=== PATIENT | female | born 1955 | race Caucasian/White ===

== ENCOUNTER → 2016-10-22 | Outpatient (CLI) | payer OTHER ==
--- NOTE | 2016-10-22 11:25 | MM ---
Reason for exam: additional evaluation requested from prior study. Last mammogram was performed 1 year and 3 months ago. History: Patient is postmenopausal. Family history of breast cancer in grandmother. Physical Findings: Nurse did not find any significant physical abnormalities on exam. MG 3D Diag Mammo W/Cad TRACY Bilateral CC and MLO view(s) were taken. Prior study comparison: July 23, 2015, bilateral MG 3d screening mammo w/cad. May 25, 2014, left breast MG work up mamm w CAD LT. Asymmetry in left upper outer quadrant. This finding is changed when compared with previous exams. These results were verbally communicated with the patient and result sheet given to the patient on 10/22/16. ASSESSMENT: Incomplete: need additional imaging evaluation, BI-RAD 0 RECOMMENDATION: Ultrasound of the left breast.
--- NOTE | 2016-10-22 11:28 | USB ---
Reason for exam: additional evaluation requested from abnormal screening. History: Patient is postmenopausal. Family history of breast cancer in grandmother. US Breast Limited LT Left breast ultrasound demonstrates a 4 x 2 x 4mm oval, cystic lesion at 12 o'clock, a 17 x 7 x 15mm lobular, cystic lesion at 1 o'clock, a 6 x 2 x 7mm oval, cystic lesion at 3 o'clock and duct ectasia at the posterior nipple. These results were verbally communicated with the patient and result sheet given to the patient on 10/22/16. ASSESSMENT: Benign, BI-RAD 2 RECOMMENDATION: Routine screening mammogram of both breasts in 1 year.
== END | disposition home or self-care (01) ==
LOC: RADMAMWWP 09:36
PROVIDERS: ATTEND Obstetrics & Gynecology
DX: R92.8 Other abnormal and inconclusive findings on diagnostic imaging of breast (principal)
CPT/HCPCS: 76642; G0204; G0279

== ENCOUNTER → 2017-12-07 | Outpatient (CLI) | payer OTHER ==
--- NOTE | 2017-12-09 09:40 | MM ---
Reason for exam: screening (asymptomatic). Last mammogram was performed 1 year and 2 months ago. History: Patient is postmenopausal. Family history of breast cancer in grandmother. Physical Findings: A clinical breast exam by your physician is recommended on an annual basis and results should be correlated with mammographic findings. MG 3D Screening Mammo W/Cad Bilateral CC and MLO view(s) were taken. Prior study comparison: October 22, 2016, bilateral MG 3d diag mammo w/cad TRACY. July 23, 2015, bilateral MG 3d screening mammo w/cad. There are scattered fibroglandular densities. There is chronic nodularity in the left breast. No significant changes when compared with prior studies. ASSESSMENT: Benign, BI-RAD 2 RECOMMENDATION: Routine screening mammogram of both breasts in 1 year.
== END | disposition home or self-care (01) ==
LOC: RADMAMWWP 13:29
PROVIDERS: ATTEND Obstetrics & Gynecology
DX: Z12.31 Encounter for screening mammogram for malignant neoplasm of breast (principal)
CPT/HCPCS: 77063; 77067

== ENCOUNTER → 2019-02-17 | Outpatient (CLI) | payer BC ==
--- NOTE | 2019-02-18 10:54 | MM ---
Reason for exam: screening (asymptomatic). Last mammogram was performed 1 year and 2 months ago. History: Patient is postmenopausal. Family history of breast cancer in grandmother. Physical Findings: A clinical breast exam by your physician is recommended on an annual basis and results should be correlated with mammographic findings. MG 3D Screening Mammo W/Cad Bilateral CC and MLO view(s) were taken. Prior study comparison: December 07, 2017, bilateral MG 3d screening mammo w/cad. October 22, 2016, bilateral MG 3d diag mammo w/cad TRACY. There are scattered fibroglandular densities. No significant changes when compared with prior studies. ASSESSMENT: Benign, BI-RAD 2 RECOMMENDATION: Routine screening mammogram of both breasts in 1 year.
== END | disposition home or self-care (01) ==
LOC: RADMAMWWP 14:01
PROVIDERS: ATTEND Obstetrics & Gynecology
DX: Z12.31 Encounter for screening mammogram for malignant neoplasm of breast (principal); Z80.3 Family history of malignant neoplasm of breast
CPT/HCPCS: 77063; 77067